=== PATIENT | female | born 1950 | race Caucasian/White ===

== ENCOUNTER → 2017-11-08 16:15 | Outpatient (CLI) | payer MEDICARE, OTHER | END | disposition home or self-care (01) | LOC: D.CT 16:15 | DX: R93.8 Abnormal findings on diagnostic imaging of other specified body structures (principal) ==

== ENCOUNTER → 2018-02-02 08:42 | Outpatient (CLI) | payer MEDICARE, OTHER | END | disposition home or self-care (01) | LOC: D.RAD 01-12 09:00 | DX: R13.10 Dysphagia, unspecified (principal) ==

== ENCOUNTER → 2018-02-09 12:48 | Outpatient (CLI) | payer MEDICARE, OTHER | END | disposition home or self-care (01) | LOC: D.RAD 12:48 | DX: J70.9 Respiratory conditions due to unspecified external agent (principal) ==

== ENCOUNTER → 2018-03-19 16:17 | Outpatient (CLI) | payer MEDICARE, OTHER | END | disposition home or self-care (01) | LOC: D.CT 16:17 | DX: D80.1 Nonfamilial hypogammaglobulinemia (principal) ==

== ENCOUNTER 2018-04-24 19:00 | Outpatient (CLI) | payer MEDICARE, OTHER | END 2018-04-24 23:59 | disposition home or self-care (01) | LOC: D.MAMMO 19:00 | PROVIDERS: ATTEND Family Medicine | DX: Z12.31 Encounter for screening mammogram for malignant neoplasm of breast (principal) ==

== ENCOUNTER → 2018-05-10 09:52 | Outpatient (CLI) | payer MEDICARE, BC | END | disposition home or self-care (01) | LOC: D.RT 09:52 | PROVIDERS: ATTEND Internal Medicine Pulmonary Disease | DX: R06.00 Dyspnea, unspecified (principal) ==

== ENCOUNTER → 2018-05-21 13:03 | Outpatient (CLI) | payer MEDICARE, BC ==
[2018-05-21 14:06] LABS: BASOPHILS 1.1 % (0-2); EOSINOPHILS 2.8 % (0-7); HEMATOCRIT 41.4 % (36.0-48.0); HEMOGLOBIN 13.6 g/dL (12-16); IMMATURE GRANULOCYTES 0.2 % (0-5); LYMPHOCYTES 20.5 % (15-50); MCH 30.4 pg (26.0-34.0); MCHC 32.9 g/dL (31.0-37.0); MCV 92.6 fL (80.0-100.0); MEAN PLATELET VOLUME 9.1 fL (7.4-10.4); MONOCYTES 5.3 % (2-11); NEUTROPHILS 70.1 % (40-80); PLATELET COUNT 208 10x3/uL (130-400); RBC 4.47 10x6/uL (4.00-5.40); RDW 14.7 % (11.5-14.5); WBC 8.5 10x3/uL (4.8-10.8)
== END | disposition home or self-care (01) ==
LOC: D.CT 13:03
PROVIDERS: ATTEND Internal Medicine Pulmonary Disease
DX: R06.00 Dyspnea, unspecified (principal)

== ENCOUNTER 2018-10-09 05:30 | Day surgery (SDC) | payer MEDICARE, BC ==
[2018-10-08 09:55] LABS: HEMATOCRIT 41.9 % (36.0-48.0); HEMOGLOBIN 14.3 g/dL (12-16); MCH 30.2 pg (26.0-34.0); MCHC 34.1 g/dL (31.0-37.0); MCV 88.4 fL (80.0-100.0); MEAN PLATELET VOLUME 9.1 fL (7.4-10.4); RBC 4.74 10x6/uL (4.00-5.40); RDW 15.2 % (11.5-14.5); WBC 7.4 10x3/uL (4.8-10.8)
[~2018-10-09] VITALS: Ht 162.6 cm; Wt 94.3 kg
[~2018-10-09 05:30] MED LIST: ALENDRONAT70 MG/75 M PO; ASCORBIC ACID500 MG; AZELASTINE137 MCG/0. NASAL; BANOPHEN25 MG; CALCIUM 600 +1 EAC3 PO; CICLODAN6.6 ML TP; GAMMA GLOBULIN IV; LEVOXYL125 MCG PO; MUPIROCIN22 GM TOPICAL; NAPROSYN500 MG PO; NEURONTIN 300300 MG; OMEPRAZOLE40 MG PO; OXYBUTYNIN CHLOR5 MG PO; SYMBICORT 80-10.2 GM INH; ULTRAM50 MG; VITAMIN A10000 UNIT; VITAMIN D3400 UNI1; VITAMIN E1000 UNI1 PO; WELCHOL625 MG; ZOLOFT50 MG PO; [UNRECOGNIZED DRUG - OTHER]
[2018-10-09 06:35] VITALS: BP 118/62; Ht 162.6 cm; Wt 94.3 kg
--- NOTE | 2018-10-09 09:33 | NUR ---
0930 REP SPEAKING TO SPOUSE AND GIVING RECEIVING DEVICE WITH INSTRUCTIONS.
--- NOTE | 2018-10-09 09:48 | NUR ---
[id number] DR. NINA SAVAGE
--- NOTE | 2018-10-09 12:38 | OP ---
PATIENT NAME: KINGSLEY SCHAEFFER MEDICAL RECORD: [id number] :52 LOCATION:D.OPS ADMISSION DATE: SURGEON: BENJAMIN WOOD MD DATE OF OPERATION: 10/09/2018 SURGEON: Benjamin Wood MD EDGE BANDING OFF BEARER: CLAUS by Leon Scott CRNA DIAGNOSES: 1. Nonfunctioning InterStim pacemaker and lead. 2. Urge urinary and fecal incontinence. PROCEDURES: Removal of old InterStim pacemaker and lead. Placement of a new InterStim lead and pacemaker. Intraoperative programming. SPECIMENS: Old InterStim pacemaker and lead. FINDINGS: Best oumou response and toe flexion response on the left S3 nerve root. BLOOD LOSS: Minimal. CLINICAL HISTORY: This is a 68-year-old female who had the InterStim implant placed by Dr. John Lee of [facility] on 10/10/2017. The indication was for urge urinary incontinence without response to medication. She had an excellent response at the trial, which was a PNE. Later, she had the permanent implant placed. She then fell, landing on the device; and since then, the device has not worked properly. She does not feel a stimulation. When I increased the voltage from 1.1 volts, which she had it set at, to 1.3 volts, she did feel the stimulation. However, the stimulation is in the rectal area and not in the vaginal and perineal area. She still has urge urinary incontinence and urinary frequency every 2 hours. She has nocturia times 1 and she uses 4-5 pads per day. She has episodes of diarrhea and fecal incontinence also. The plan is to remove the entire old device and start over with a new device. SHE IS ALLERGIC TO PENICILLIN. She was given Levaquin on-call to the OR. DESCRIPTION OF PROCEDURE: The patient was given IV sedation in prone position. She was then prepped and draped. The old incision was infiltrated with lidocaine with epinephrine. The old incision was reopened. Using the Bovie, we came down onto the pacemaker. It was taken out of the pocket. The patient is rather obese and even pulling on the InterStim lead. We could not detect the area of the insertion of the lead. Using fluoroscopy, we could identify that the lead actually goes over to the left S3 nerve root. Also, the electrode angles quite far laterally from its insertion site. An incision was made over the trajectory of the electrode as determined by fluoroscopy. Using hemostat, I was finally able with the aid of fluoroscopy to find the old electrode and finally remove the distal portion with tines on it. This area was cut off and the entire remaining lead and pacemaker attached was removed and sent to pathology for identification. We then landmarked again the course of the sacral foramina and the location of the S3 under fluoroscopy. These were marked out on the skin using a marking pen. The skin overlying S2 foramen was infiltrated with lidocaine with epinephrine solution. We used 1% with epinephrine. With a great deal of OPERATIVE REPORT [id number] KINGSLEY SCHAEFFER, I eventually found the S3 nerve root on each side. By testing electrically the spinal needle, the left S3 nerve root had the best response. There was [id number] response from the right S3 nerve root. We also tried the left S4 nerve root just for verification and the right S2 nerve was attempted, but we did not get into the foramen. These did not show as good response as the left S3 nerve root and therefore we decided to go proceed with the left S3 nerve root. A small incision was made at the base of the needle at the skin level with a #15 blade. The stylet of the spinal needle was replaced with an extra long stylet. Once the extra long stylet was then placed, a spinal needle was removed entirely. Over the extra long stylet, we placed a trocar dilator. There was a radiopaque marker on the distal end of the dilator sheath, which we placed under fluoroscopic guidance. It is between the 2 tables of the sacral bone. Once this was in position, the trocar and the extra long stylet were removed, leaving the sheath in place. Through the lumen of the sheath, we placed the permanent electrode, which is 4 channels. It has a slight bend on the end of the electrode. This bend extends laterally on the patient. We tested each of the 4 channels in turn. Oumou response was seen on all 4 channels, although the strongest responses were seen in channels 2 and 3. The 2 was the strongest of all. There were also toe flexion responses in channel 2 and a bit in channel 3. At this point, we used the tunneling device to bring the electrode to the pocket site that was previously made. The pocket for the pacemaker that Dr. Lee had made was rather superficial and I deepened this pocket down to the gluteal fascia with blunt dissection. We then attached the end of the pacemaker lead to the pacemaker itself and tightened down the connections here with a torque-limiting screwdriver. The pacemaker was then placed down onto the gluteal fascial pocket. Telemetry was performed, but due to the depth of the device, we had difficulty obtaining correct impedance readings with our telemetry device. Instead, we decided to turn the device on and programmed it so that it would be set at about 1.1 volts. We could see good oumou reflexes from the device working. The wound was irrigated out with sterile water. The pacemaker pocket was closed using brooke. The area of the lead insertion was closed using simple interrupted sutures of 4-0 Vicryl. Airstrip dressings were applied on the incision sites. The patient was then awakened and brought back to her preoperative holding area. She will be taught the programming techniques by the [employer] rental sales representative. I will see her in followup in 2 weeks' time to remove the brooke. TRANSINT:[id number] Voice Confirmation ID: [id number] DOCUMENT ID: [id number] BENJAMIN WOOD MD at 1238 CC: [id number] DICTATION DATE: 10/09/18929 CLINICAL DOCUMENTATION SPECIALIST: 10/09/18 1205 [facility] [address] [place] [address]
== END 2018-10-09 13:44 | disposition home or self-care (01) ==
LOC: D.OPS 05:30
PROVIDERS: Anesthesiology; ATTEND Urology
DX: T83.190A Other mechanical complication of urinary electronic stimulator device, initial encounter (principal); N39.41 Urge incontinence; R15.9 Full incontinence of feces; Z01.812 Encounter for preprocedural laboratory examination

== ENCOUNTER 2018-12-04 06:30 | Day surgery (SDC) | payer MEDICARE, BC ==
[~2018-12-04] VITALS: Ht 162.6 cm; Wt 92.1 kg
[2018-12-04 07:06] LABS: HEMOGLOBIN 13.4 g/dL (12-16); MCH 29.5 pg (26.0-34.0); MCHC 32.7 g/dL (31.0-37.0); MCV 90.3 fL (80.0-100.0); MEAN PLATELET VOLUME 8.7 fL (7.4-10.4); RBC 4.54 10x6/uL (4.00-5.40); RDW 14.2 % (11.5-14.5); WBC 6.8 10x3/uL (4.8-10.8)
[2018-12-04 08:06] VITALS: BP 106/61; Ht 162.6 cm; Wt 92.1 kg
--- NOTE | 2018-12-04 12:03 | OP ---
PATIENT NAME: KINGSLEY SCHAEFFER MEDICAL RECORD: [id number] :52 LOCATION:D.OPS ADMISSION DATE: SURGEON: BENJAMIN WOOD MD DATE OF OPERATION: 12/04/2018 SURGEON: Benjamin Wood MD ANESTHESIA: TIVA by Roberta Echeverria CRNA. DIAGNOSIS: Nonfunctioning InterStim pacemaker and lead. PROCEDURE: Removal of InterStim pacemaker and lead. SPECIMENS: InterStim pacemaker and lead. BLOOD LOSS: None. CLINICAL HISTORY: This is a 68-year-old female, who has urge urinary and fecal incontinence. She had the InterStim device placed by another physician. That pacemaker and lead failed. She had a new device placed by wi in 10/09/2018. This worked temporarily, but then it has ceased to work. She is having daily urge incontinence and she has to change pads 6-7 times per day. She also wets the bed. She has ongoing tenderness at the pacemaker site. There is no sign of infection at the site of the pacemaker. She wishes to have the device removed. SHE IS ALLERGIC TO PENICILLIN. She was given Levaquin IV buyer liaison to the OR. DESCRIPTION OF PROCEDURE: The patient was placed in prone position. She was prepped and draped. She was given IV sedation. The old pacemaker was located in the right iliac crest region. The area around this incision was infiltrated with 0.25% Marcaine with epinephrine. The incision was reopened. With blunt dissection, we got down to the pocket containing the pacemaker. There was no sign of infection, but there was some fat necrosis here and that may have accounted for her pain. By gently pulling on the attached InterStim electrode, we could identify the site of the implantation of the electrode. The electrode implantation incision was reopened. This was a stab incision in the midline of the sacrum. Using a hemostat, I was able to grasp the electrode at this location and sharply pull it out to release the tines. The electrode was then cut and both ends were removed and the entire device was removed from the patient's body. The wound was irrigated using normal saline. The site of the pacemaker pocket was closed using simple interrupted 3-0 Vicryl. Farzana were then used to close the skin incisions. A dressing was applied over the farzana. I will see the patient in followup next week to remove the farzana. TRANSINT:[id number] Voice Confirmation ID: [id number] DOCUMENT ID: [id number] BENJAMIN WOOD MD at 1203 CC: [id number] DICTATION DATE: 12/04/18 1106 MACHINE STACKER: 12/04/18 1120 [facility] [address] [place] [id number]
== END 2018-12-04 12:20 | disposition home or self-care (01) ==
LOC: D.OPS 06:30 → D.PAN 08:30 → D.OPS 08:30
PROVIDERS: Anesthesiology; ATTEND Urology
DX: T85.193A Other mechanical complication of implanted electronic neurostimulator, generator, initial encounter (principal)

== ENCOUNTER → 2019-04-30 19:48 | Outpatient (CLI) | payer MEDICARE, BC ==
[2018-12-04 08:06] VITALS: BMI 34.9
== END | disposition home or self-care (01) ==
LOC: D.MAMMO 14:45
PROVIDERS: ATTEND Family Medicine
DX: Z12.31 Encounter for screening mammogram for malignant neoplasm of breast (principal)

== ENCOUNTER → 2019-07-30 11:50 | Outpatient (CLI) | payer MEDICARE, BC ==
[2018-12-04 08:06] VITALS: BMI 34.9
== END | disposition home or self-care (01) ==
LOC: D.HCCECHO 11:50
PROVIDERS: ATTEND Internal Medicine Cardiovascular Disease
DX: I34.9 Nonrheumatic mitral valve disorder, unspecified (principal)

== ENCOUNTER 2020-05-25 09:45 | Outpatient (CLI) | payer MEDICARE, BC ==
[2020-03-03 07:42] VITALS: BMI 34.1
[~2020-05-25 09:45] MED LIST changes: +CRESTOR10 MG PO; +DIFLUCAN100 MG PO; +MELATONIN5 MG PO; +MULTI-DAY VITAM1 TAB PO; +OMNICEF300 MG PO; +PLAVIX75 MG PO; +SINGULAIR10 MG PO; +SUPER B COMPLE1 EAC1 PO; +ULTRAM50 MG PO; +VITAMIN D31250 MCG PO; -VITAMIN D3400 UNI1
== END 2020-05-25 23:59 | disposition home or self-care (01) ==
LOC: D.MAMMO 09:45
PROVIDERS: ATTEND Family Medicine
DX: Z12.31 Encounter for screening mammogram for malignant neoplasm of breast (principal)